=== PATIENT | male | born 1955 | race Caucasian/White ===

== ENCOUNTER 2019-11-24 15:23 | Emergency (ER) | payer OTHER, BC ==
[~2019-11-24] VITALS: Ht 172.7 cm; Wt 51.7 kg
[2019-11-24 15:35] VITALS: BP_SYST 100
--- NOTE | 2019-11-24 15:35 | NUR ---
BROUGHT IN BY [facility] AND PLACED IN HALLWAY, TRIAGED.
--- NOTE | 2019-11-24 16:05 | NUR ---
ER at bedside examining patient.
--- NOTE | 2019-11-24 16:30 | NUR ---
PT BIB AMBULANCE C/O RIB PAIN AND + ETOH. PT HAS HISTORY OF FALL 2 DAYS AGO. PT IS [facility] AND AMBULATORY.
[2019-11-24 17:00] LABS: BASOPHILS % (AUTO) 0.5 % (0.0-2.0); EOSINOPHILS % (AUTO) 0.2 % (0.0-4.0); HEMATOCRIT 37.5 % (36-54); HEMOGLOBIN 12.6 g/dL (14.0-18.0); LYMPHOCYTES # (AUTO) 0.9 K/uL (1.0-5.5); LYMPHOCYTES % (AUTO) 18.1 % (20.5-51.5); MEAN CORPUSCULAR HEMOGLOBIN 34 pg (27-31); MEAN CORPUSCULAR HGB CONC 34 % (32-36); MEAN CORPUSCULAR VOLUME 102 fL (79.0-98.0); MONOCYTES # (AUTO) 0.3 K/uL (0.0-1.0); MONOCYTES % (AUTO) 6.9 % (1.7-9.3); NEUTROPHILS # (AUTO) 3.6 K/uL (1.8-7.7); NEUTROPHILS % (AUTO) 74.3 % (40.0-70.0); PLATELET COUNT (AUTO) 210 K/uL (130-430); RED BLOOD CELL COUNT(AUTO) 3.69 MIL/uL (4.2-6.2); RED CELL DISTRIBUTION WIDTH 13.4 % (9.0-15.0); WHITE BLOOD COUNT (AUTO) 4.9 K/uL (4.8-10.8)
--- NOTE | 2019-11-24 17:00 | NUR ---
PT AWAITING DISPOSITION. PT IN HALLWAY ON AMBULANCE [facility], V/S STABLE.
[2019-11-24 17:05] LABS: CALCIUM 8.2 mg/dL (8.4-11.0); CREATININE 0.59 mg/dL (0.55-1.30)
[2019-11-24 17:10] LABS: ALBUMIN 2.5 g/dL (3.4-4.8); TOTAL BILIRUBIN 0.3 mg/dL (0.0-1.0)
[2019-11-24 18:40] VITALS: BP_SYST 100
--- NOTE | 2019-11-24 18:40 | NUR ---
Patient given written and verbal discharge instructions and verbalizes understanding. DR. JODI KIDD MD discussed with patient the results and treatment provided. Patient in stable condition. ID arm band removed. Patient educated on pain management and to follow up with PMD. Pain Scale 0/10.Opportunity for questions provided and answered.
== END 2019-11-24 18:40 | disposition home or self-care (01) ==
LOC: SED 15:23
DX: S20.212A Contusion of left front wall of thorax, initial encounter (principal); F10.10 Alcohol abuse, uncomplicated; Y90.9 Presence of alcohol in blood, level not specified; W18.39XA Other fall on same level, initial encounter; Y93.89 Activity, other specified; Y92.89 Other specified places as the place of occurrence of the external cause; Y99.8 Other external cause status
CPT/HCPCS: 36415; 71045; 71100; 80053; 81002; 85025; 99284